=== PATIENT | female | born 1960 | race Caucasian/White ===

== ENCOUNTER 2017-03-13 00:24 | Emergency (ER) | payer BC ==
[2017-03-13 03:52] VITALS: BP 119/74
== END 2017-03-13 03:53 | disposition home or self-care (01) ==
LOC: ED 00:24
DX: R42 Dizziness and giddiness (principal); T40.7X5A Adverse effect of cannabis (derivatives), initial encounter; F17.210 Nicotine dependence, cigarettes, uncomplicated; Y92.89 Other specified places as the place of occurrence of the external cause